=== PATIENT | male | born 1955 | race Caucasian/White ===

== ENCOUNTER 2021-12-15 06:08 | Emergency (ER) | payer SELFPAY ==
[~2021-12-15 06:08] MED LIST: ASPIRIN EC81 MG PO; ATORVASTATIN CA20 MG PO; CINNAMON500 MG PO; GLUCOPHAGE500 MG PO; LISINOPRIL-HCT1 EAC1 PO; LOPRESSOR 25 MG25 MG PO; POTASSIUM GLUC500 MG PO; VITAMIN C500 M4 PO; VITAMIN D3125 MC1 PO
[2021-12-15] MEDS ORDERED: HYDROCODON-ACE1 EAC4 PO (09:14)
== END 2021-12-15 10:00 | disposition home or self-care (01) ==
LOC: ER1 06:08
DX: S43.015A Anterior dislocation of left humerus, initial encounter (principal); S43.035A Inferior dislocation of left humerus, initial encounter; E11.9 Type 2 diabetes mellitus without complications; I10 Essential (primary) hypertension; E78.5 Hyperlipidemia, unspecified; W01.10XA Fall on same level from slipping, tripping and stumbling with subsequent striking against unspecified object, initial encounter; Y99.0 Civilian activity done for income or pay
CPT/HCPCS: 23650; 73020; 73030; 96374; 96375; 99283; J0696; J2405; J2704; J3010